=== PATIENT | female | born 1980 | race Two or more races ===

== ENCOUNTER 2018-01-20 03:36 | Inpatient (IN) | payer OTHER ==
[~2018-01-20] VITALS: Ht 165.1 cm; Wt 76.7 kg
--- NOTE | 2018-01-20 03:47 | NUR ---
PT TO ER BED 9. BIBRA FROM HOME C/O ABD PAIN X 1 WEEK. PER EMD BS CORPORATE WELLNESS COORDINATOR READ "HIGH". PT PLACED ON PCTS. VSS/RESP EVEN UNLABORED/NAD NOTED/SKIN WARM AND DRY/AFEBRILE/DENIES N-V-D/AOX4. MD AT BEDSIDE FOR EVAL.
[2018-01-20] MEDS ORDERED: INSULIN REGULAR, HUMAN 100 UNIT/ML 10 ML VIAL IV ONE (04:00)
[2018-01-20] MEDS ORDERED: KETOROLAC TROMETHAMINE INJ 30 MG/ML VIAL IV ONE (04:00)
[2018-01-20] MEDS ORDERED: IV NS 0.9% 1,000 ML BAG IV ONE (04:00)
[2018-01-20] MEDS ORDERED: INSULIN REGULAR, HUMAN 100 UNIT/ML 10 ML VIAL ONE (04:04)
[2018-01-20] MEDS ORDERED: KETOROLAC TROMETHAMINE INJ 30 MG/ML VIAL ONE (04:04)
--- NOTE | 2018-01-20 04:10 | NUR ---
RT AT BEDSIDE FOR ABG.
--- NOTE | 2018-01-20 04:12 | NUR ---
EMT AT BEDSIDE FOR EKG.
[2018-01-20 04:19] LABS: ABG BASE EXCESS -9.8 mmol/L; ABG OXYGEN SATURATION 96.3 % (92.0-98.5); ABG PCO2 33.4 mmHg (35.0-45.0); ABG PH 7.291 (7.350-7.450); ABG PO2 97.1 mmHg (75.0-100.0); AaDO2 12.6 mmHg; COHb 0.4 % (0.5-1.5); MetHb 0.3 % (0.0-1.5); O2Hb 95.6 % (94.0-97.0); SITE, ABG Right Radial; VENT MODE, BG room air
--- NOTE | 2018-01-20 04:20 | NUR ---
URINE SPECIMEN OBTAINED AND SENT TO THE LAB.
--- NOTE | 2018-01-20 04:24 | NUR ---
LAB AT BEDSIDE FOR DRAW.
[2018-01-20 04:29] LABS: APPEARANCE,URINE SL CLOUDY (CLEAR); BILIRUBIN,URINE NEGATIVE (NEGATIVE); BLOOD, URINE 2+ Ery/uL (NEGATIVE); COLOR,URINE YELLOW (YELLOW); KETONES,URINE NEGATIVE (NEGATIVE); LEUKOCYTE ESTERASE ,URINE NEGATIVE (NEGATIVE); NITRITE, URINE NEGATIVE (NEGATIVE); PROTEIN,URINE 3+ mg/dl (NEGATIVE); UGLUCOSE 3+ mg/dL (NEGATIVE); UROBILINOGEN,URINE 0.2 EU/dL (0.2)
[2018-01-20 04:36] LABS: BASOPHILS % (AUTO) 0.4 % (0.0-2.0); HEMATOCRIT 30 % (33-45); HEMOGLOBIN 10.2 g/dL (11.5-14.8); LYMPHOCYTES # (AUTO) 2.4 /CMM (0.8-4.8); LYMPHOCYTES % (AUTO) 25.4 % (20.0-44.0); MEAN CORPUSCULAR HEMOGLOBIN 30 PG (26.0-33.0); MEAN CORPUSCULAR HGB CONC 34 g/dl (31.0-36.0); MEAN CORPUSCULAR VOLUME 89 fL (82-100); MONOCYTES # (AUTO) 0.1 /CMM (0.1-1.30); MONOCYTES % (AUTO) 1.6 % (2.0-12.0); NEUTROPHILS # (AUTO) 6.8 /CMM (1.8-8.9); NEUTROPHILS % (AUTO) 71.6 % (43.0-81.0); PLATELET COUNT (AUTO) 298 /CMM (150-450); RDW COEFFICIENT OF VARIATION 13.6 (11.5-15.0); RED BLOOD CELL COUNT(AUTO) 3.43 MIL/uL (4.0-5.2); WHITE BLOOD COUNT (AUTO) 9.4 K/uL (4.3-11.0)
[2018-01-20 04:55] LABS: BACTERIA,URINE None seen /HPF (None Seen); SQUAMOUS EPITHELIAL CELL,UR Few /HPF (None Seen)
[2018-01-20 04:57] LABS: ALBUMIN 2.5 g/dL (3.4-5.0); BILIRUBIN,TOTAL 0.3 mg/dL (0.2-1.0); CALCIUM, SERUM 7.4 mg/dL (8.5-10.1); CREATININE 2.3 mg/dL (0.6-1.3); TOTAL PROTEIN, SERUM 6.9 g/dL (6.4-8.2)
[2018-01-20] MEDS ORDERED: HYDROCODONE/APAP 5/325MG 1 EACH TABLET ONE (06:04)
--- NOTE | 2018-01-20 06:10 | NUR ---
REPORT GIVEN TO MYAH FULTON FOR [facility].
--- NOTE | 2018-01-20 06:29 | NUR ---
PT TRANSPORTED VIA STRETCHER TO TELE 107 ON CAMPUS WELLNESS COORDINATOR WITH RN PER ACLS PROTOCOL. VSS.
[2018-01-20] MEDS ORDERED: HYDROCODONE/APAP 5/325MG 1 EACH TABLET PO ONE (06:30)
[2018-01-20 06:35] VITALS: BP 142/70
--- NOTE | 2018-01-20 06:45 | NUR ---
RN NOTES RECEIVED PATIENT FROM ER VIA STRETCHER ACCOMPANIED BY 1 STAFF IN STABLE CONDITION. NO RESPIRATORY DISTRESS OR SHORTNESS OF BREATH. BREATHING EVEN AND UNLABORED. COMPLAINING OF 10/10 ABDOMINAL PAIN. NORCO 5MG JUST GIVEN IN ER. ALERT AND ORIENT X 4. GERMAN SPEAKING, DOESNT UNDERSTAND CHINESE. ON ROOM AIR TOLERATING WELL. SKIN ASSESSMENT DONE, PICTURE TAKEN AND PUT IN THE CHART. VITAL SIGNS WNL. WILL ENDORSE TO AM SHIFT FOR CONTINUITY OF CARE.
--- NOTE | 2018-01-20 07:46 | NUR ---
RN NOTES RECEIVED PT A&OX4 ON ROOM AIR NO SOB OR DISTRESS. SR ON THE TELE CONSUELO HR 81. LAC 20G IV SITE INTACT. BED LOCKED AND IN LOWEST POSITION, CALL LIGHT WITHIN REACH, SIDE RAILS UPX3, WILL CONT TO CONSUELO.
[2018-01-20 08:00] VITALS: BP 127/63
[2018-01-20] MEDS ORDERED: HYDROCODONE/APAP 5/325MG 1 EACH TABLET PO PRN (08:30)
[2018-01-20] MEDS ORDERED: IV NS 0.9% 1,000 ML IV PRN (08:30)
[2018-01-20] MEDS ORDERED: Z GUARD REMEDY 2 OZ OINT TP PRN (08:30)
[2018-01-20] MEDS ORDERED: *INSULIN REGULAR(HUMULIN R)HUM 100 UNIT/ML VIAL SQ PRN (08:30)
[2018-01-20] MEDS ORDERED: MAGNESIUM HYDROXIDE 30 ML UDC PO PRN (08:30)
[2018-01-20] MEDS ORDERED: DEXTROSE 50%-WATER 50 ML DISP.SYRIN IV PRN ×2 (08:30→14:00)
[2018-01-20] MEDS ORDERED: INSU100I26 SQ (08:42)
[2018-01-20] MEDS ORDERED: GABA-532 PO (08:42)
[2018-01-20] MEDS ORDERED: ATOR40TA PO (08:42)
[2018-01-20] MEDS ORDERED: ASPI-1169 PO (08:42)
[2018-01-20] MEDS ORDERED: INSU100I14 SQ (08:42)
[2018-01-20] MEDS ORDERED: BLOO-668 IN (08:42)
[2018-01-20] MEDS ORDERED: NIFE60TA73 PO (08:42)
[2018-01-20] MEDS ORDERED: FOLI1TAB16 PO (08:42)
[2018-01-20] MEDS ORDERED: LISI40TA4 PO (08:42)
[2018-01-20] MEDS ORDERED: CARV12.52 PO (08:42)
[2018-01-20] MEDS: BLOOD SUGAR DIAGNOSTIC 1 EACH STRIP IN SCH ×4 (08:44→21:00)
[2018-01-20] MEDS: INSULIN REGULAR, HUMAN 100 UNIT/ML 3 ML VIAL SQ PRN ×3 (08:45→22:08)
[2018-01-20] MEDS: HEPARIN SODIUM, PORCINE 5000 UNITS/1 ML VIAL SQ SCH ×2 (10:17→21:16)
[2018-01-20 12:00] VITALS: BP 126/76
[2018-01-20] MEDS ORDERED: Sodium Bicarbonate 100 MEQ in IV 1/2NS 1000 ML 1,000 ML IV PRN (12:00)
[2018-01-20] MEDS ORDERED: Sodium Bicarbonate 100 MEQ in IV D5/0.45 NACL 1,000 ML IV PRN (12:00)
[2018-01-20 12:40] LABS: APPEARANCE,URINE CLEAR (CLEAR); BILIRUBIN,URINE NEGATIVE (NEGATIVE); BLOOD, URINE 1+ Ery/uL (NEGATIVE); COLOR,URINE YELLOW (YELLOW); KETONES,URINE NEGATIVE (NEGATIVE); LEUKOCYTE ESTERASE ,URINE NEGATIVE (NEGATIVE); NITRITE, URINE NEGATIVE (NEGATIVE); PROTEIN,URINE 2+ mg/dl (NEGATIVE); UGLUCOSE 3+ mg/dL (NEGATIVE); UROBILINOGEN,URINE 0.2 EU/dL (0.2)
[2018-01-20 12:46] LABS: ALBUMIN 2.3 g/dL (3.4-5.0); BILIRUBIN,TOTAL 0.2 mg/dL (0.2-1.0); CALCIUM, SERUM 7.8 mg/dL (8.5-10.1); CREATININE 1.8 mg/dL (0.6-1.3); MAGNESIUM 2.2 mg/dL (1.8-2.4); PHOSPHORUS 3.4 mg/dL (2.5-4.9); POTASSIUM 4.5 mmol/L (3.5-5.1); TOTAL PROTEIN, SERUM 6.6 g/dL (6.4-8.2)
[2018-01-20 13:18] LABS: BACTERIA,URINE Rare /HPF (None Seen); SQUAMOUS EPITHELIAL CELL,UR Few /HPF (None Seen)
[2018-01-20 13:40] LABS: EOSINOPHIL,URINE None Seen
[2018-01-20] MEDS ORDERED: INSULIN GLARGINE, 100 UNIT/ML CARTRIDGE SQ ONE (14:00)
[2018-01-20] MEDS: ASPIRIN 81 MG TAB.CHEW PO SCH (14:20)
[2018-01-20] MEDS: ATORVASTATIN 40 MG TABLET PO SCH (14:20)
[2018-01-20] MEDS: GABAPENTIN 100 MG CAPSULE PO SCH ×2 (14:21→16:04)
[2018-01-20] MEDS: LEVOFLOXACIN (500MG) 500 MG TABLET PO SCH (15:07)
[2018-01-20] MEDS: LISINOPRIL (20MG) 20 MG TABLET PO SCH (15:45)
[2018-01-20 16:00] VITALS: BP 148/81
[2018-01-20] MEDS: CARVEDILOL 12.5 MG TABLET PO SCH (16:05)
--- NOTE | 2018-01-20 18:48 | NUR ---
RN NOTES PT REMAINED IN STABLE CONDITION THROUGHOUT THE SHIFT, ALL NEEDS MET. LAST BS 111. WILL ENDORSE TO ONCOMING SHIFT.
[2018-01-20 20:00] VITALS: BP_SYST 118; BP_SYST 137; BP_DIAS 64; BP_DIAS 71
--- NOTE | 2018-01-20 20:05 | NUR ---
RN NOTES IN BED, RESTING WITH COMPLAINTS OF STOMACH PAIN. NO RESPIRATORY DISTRESS OR SHORTNESS OF BREATH. ON ROOM AIR TOLERATING WELL. ALERT AND ORIENTED. TURKMEN SPEAKING. VERBALIZES NEEDS. KEPT CLEAN AND DRY. WILL CONTINUE TO MONITOR
[2018-01-20] MEDS: TRAMADOL HCL 50 MG TABLET PO PRN (21:17)
[2018-01-20] MEDS: ZOLPIDEM TARTRATE 5 MG TABLET PO PRN (21:17)
[2018-01-20] MEDS: INSULIN GLARGINE, 100 UNIT/ML CARTRIDGE SQ SCH (22:06)
[2018-01-20] MEDS: ONDANSETRON HCL/PF 4 MG/2 ML VIAL IVP PRN (23:51)
[2018-01-21] VITALS: BP 170/87
[2018-01-21] MEDS: BLOOD SUGAR DIAGNOSTIC 1 EACH STRIP IN SCH ×6 (01:00→20:57)
[2018-01-21] MEDS: INSULIN REGULAR, HUMAN 100 UNIT/ML 3 ML VIAL SQ PRN ×5 (02:10→21:16)
[2018-01-21] MEDS: ACETAMINOPHEN 325 MG TABLET PO PRN (02:18)
[2018-01-21 04:00] VITALS: BP 172/87
[2018-01-21 06:40] LABS: BASOPHILS % (AUTO) 0.1 % (0.0-2.0); HEMATOCRIT 29 % (33-45); HEMOGLOBIN 9.5 g/dL (11.5-14.8); LYMPHOCYTES # (AUTO) 3.3 /CMM (0.8-4.8); LYMPHOCYTES % (AUTO) 40.6 % (20.0-44.0); MEAN CORPUSCULAR HEMOGLOBIN 29 PG (26.0-33.0); MEAN CORPUSCULAR HGB CONC 33 g/dl (31.0-36.0); MEAN CORPUSCULAR VOLUME 89 fL (82-100); MONOCYTES # (AUTO) 0.5 /CMM (0.1-1.30); MONOCYTES % (AUTO) 5.8 % (2.0-12.0); NEUTROPHILS # (AUTO) 4.2 /CMM (1.8-8.9); NEUTROPHILS % (AUTO) 52.5 % (43.0-81.0); PLATELET COUNT (AUTO) 267 /CMM (150-450); RDW COEFFICIENT OF VARIATION 14.4 (11.5-15.0); WHITE BLOOD COUNT (AUTO) 8.1 K/uL (4.3-11.0)
[2018-01-21 06:47] LABS: CREATININE 1.8 mg/dL (0.6-1.3); MAGNESIUM 2.2 mg/dL (1.8-2.4); PHOSPHORUS 3.7 mg/dL (2.5-4.9); POTASSIUM 5.2 mmol/L (3.5-5.1)
--- NOTE | 2018-01-21 07:15 | NUR ---
DAY LIGHT RELIEF OPERATOR INITIAL NOTES RECEIVED REPORT AND PATIENT FROM PM NURSE, PT RESTING IN BED WITH NO ACUTE DISTRESS, ALL NEEDS MET, ALL SAFETY MEASURES INIATIATED, A&O X4 [place] SPEAKING WITH A LITTLE CITIZEN OF [place], ON RA SAT ABOVE 97%, NO SOB, LEFT AC 20G IV INTACT SALINE LOCKED WITH NO INFILTRATION. WILL CONTINUE TO MONITOR.
[2018-01-21 08:00] VITALS: BP 132/72
[2018-01-21] MEDS: GABAPENTIN 100 MG CAPSULE PO SCH ×3 (08:42→17:04)
[2018-01-21] MEDS: LISINOPRIL (20MG) 20 MG TABLET PO SCH (08:42)
[2018-01-21] MEDS: ATORVASTATIN 40 MG TABLET PO SCH (08:42)
[2018-01-21] MEDS: FOLIC ACID 1 MG TABLET PO SCH (08:42)
[2018-01-21] MEDS: ASPIRIN 81 MG TAB.CHEW PO SCH (08:42)
[2018-01-21] MEDS: CARVEDILOL 12.5 MG TABLET PO SCH ×2 (08:43→17:03)
[2018-01-21] MEDS: HEPARIN SODIUM, PORCINE 5000 UNITS/1 ML VIAL SQ SCH ×2 (08:43→20:58)
[2018-01-21 12:00] VITALS: BP 149/72
[2018-01-21] MEDS: LEVOFLOXACIN (500MG) 500 MG TABLET PO SCH (14:52)
[2018-01-21] MEDS: ONDANSETRON HCL/PF 4 MG/2 ML VIAL IVP PRN (15:01)
[2018-01-21 16:00] VITALS: BP 167/79
--- NOTE | 2018-01-21 18:44 | NUR ---
RN MS ENDING NOTES PATIENT STABLE WITH NO ACUTE CHANGES NO CHANGES NOTED, ALL DUE MEDS GIVEN, ALL NEEDS MET, RT WRIST IV SITE 24 G INSERTED, PTS LAST BG 181 MG/DL BUT PATIENT DID NOT EAT ENOUGH DINNER ONLY COFFEE AND DRANK WATER, WILL NOT BE GIVING ANY INSULIN, WILL ENDORSE TO PM NURSE.
[2018-01-21 20:00] VITALS: BP 139/75
[2018-01-21] MEDS: TRAMADOL HCL 50 MG TABLET PO PRN (21:19)
[2018-01-21] MEDS: INSULIN GLARGINE, 100 UNIT/ML CARTRIDGE SQ SCH (21:21)
[2018-01-22] VITALS: BP 136/71
[2018-01-22] MEDS: BLOOD SUGAR DIAGNOSTIC 1 EACH STRIP IN SCH ×6 (00:40→20:54)
[2018-01-22] MEDS: INSULIN REGULAR, HUMAN 100 UNIT/ML 3 ML VIAL SQ PRN ×5 (00:41→21:33)
[2018-01-22 04:00] VITALS: BP_SYST 136; BP_SYST 149; BP_DIAS 71; BP_DIAS 74
[2018-01-22 06:12] LABS: BASOPHILS % (AUTO) 0.4 % (0.0-2.0); EOSINOPHILS % (AUTO) 1.3 % (0.0-6.0); HEMATOCRIT 29 % (33-45); HEMOGLOBIN 9.7 g/dL (11.5-14.8); LYMPHOCYTES % (AUTO) 38.2 % (20.0-44.0); MEAN CORPUSCULAR HEMOGLOBIN 29 PG (26.0-33.0); MEAN CORPUSCULAR HGB CONC 33 g/dl (31.0-36.0); MEAN CORPUSCULAR VOLUME 89 fL (82-100); MONOCYTES # (AUTO) 0.5 /CMM (0.1-1.30); MONOCYTES % (AUTO) 6.3 % (2.0-12.0); NEUTROPHILS # (AUTO) 4.2 /CMM (1.8-8.9); NEUTROPHILS % (AUTO) 53.8 % (43.0-81.0); PLATELET COUNT (AUTO) 273 /CMM (150-450); RDW COEFFICIENT OF VARIATION 14.1 (11.5-15.0); RED BLOOD CELL COUNT(AUTO) 3.31 MIL/uL (4.0-5.2); WHITE BLOOD COUNT (AUTO) 7.9 K/uL (4.3-11.0)
[2018-01-22 06:34] LABS: CALCIUM, SERUM 8.2 mg/dL (8.5-10.1); MAGNESIUM 2.3 mg/dL (1.8-2.4); POTASSIUM 4.8 mmol/L (3.5-5.1)
[2018-01-22 08:00] VITALS: BP 168/83
[2018-01-22] MEDS: HEPARIN SODIUM, PORCINE 5000 UNITS/1 ML VIAL SQ SCH ×2 (09:00→21:08)
[2018-01-22] MEDS: GABAPENTIN 100 MG CAPSULE PO SCH ×3 (09:36→17:59)
[2018-01-22] MEDS: CARVEDILOL 12.5 MG TABLET PO SCH ×2 (09:36→18:00)
[2018-01-22] MEDS: LISINOPRIL (20MG) 20 MG TABLET PO SCH (09:36)
[2018-01-22] MEDS: ASPIRIN 81 MG TAB.CHEW PO SCH (09:36)
[2018-01-22] MEDS: FOLIC ACID 1 MG TABLET PO SCH (09:36)
[2018-01-22] MEDS: ATORVASTATIN 40 MG TABLET PO SCH (09:36)
[2018-01-22] MEDS: ONDANSETRON HCL/PF 4 MG/2 ML VIAL IVP PRN ×2 (10:35→19:57)
[2018-01-22 12:00] VITALS: BP 168/83
--- NOTE | 2018-01-22 15:29 | NUR ---
UNEMPLOYMENT CLAIMS ADJUDICATOR NOTES SPOKE WITH DR WAGNER REGARDING CHANGING DOSAGE OF LANT[facility] 44 UNITS HS TO LOWER THE DOSE BECAUSE PATIENTS BG DROPS BUT MD STATED NO NEED FOR CHANGE OF ORDER AND WILL CONTINUE SAME DOSE.
[2018-01-22] MEDS: LEVOFLOXACIN (500MG) 500 MG TABLET PO SCH (15:55)
[2018-01-22 16:00] VITALS: BP 125/65
--- NOTE | 2018-01-22 18:37 | NUR ---
COOK CHEF ENDING NOTES PT RESTING IN BED WITH NO ACUTE CHANGES NOTED, ALL DUE MEDS AND NEEDS MET, PT VOCALIZES WOULD LIKE TO GO HOME SINCE SHE HAS THREE KIDS AT HOME AND WANTS TO GO AND TAKE CARE OF KIDS, TRESSAFRAN GIVEN TODAY SINCE PT WAS NAUSEOUS AND VOMITING, WILL CONTINUE CARE AND BG CHECKS, WILL ENDORSE TO PM NURSE.
[2018-01-22 20:00] VITALS: BP 101/68
[2018-01-22] MEDS: INSULIN GLARGINE, 100 UNIT/ML CARTRIDGE SQ SCH (21:21)
[2018-01-22] MEDS: TRAMADOL HCL 50 MG TABLET PO PRN (21:24)
[2018-01-23] VITALS (8 sets, daily range): BP systolic 96–181; BP diastolic 57–88
[2018-01-23] MEDS: BLOOD SUGAR DIAGNOSTIC 1 EACH STRIP IN SCH ×6 (00:23→21:11)
[2018-01-23] MEDS: ACETAMINOPHEN 325 MG TABLET PO PRN (00:23)
[2018-01-23] MEDS: ZOLPIDEM TARTRATE 5 MG TABLET PO PRN (00:30)
[2018-01-23] MEDS: INSULIN REGULAR, HUMAN 100 UNIT/ML 3 ML VIAL SQ PRN ×5 (00:32→21:11)
[2018-01-23] MEDS: hydrALAZINE HCL IV 20 MG VIAL IV PRN ×2 (04:11→14:51)
[2018-01-23] MEDS: TRAMADOL HCL 50 MG TABLET PO PRN (04:12)
[2018-01-23 06:50] LABS: CREATININE 1.9 mg/dL (0.6-1.3); MAGNESIUM 2.1 mg/dL (1.8-2.4); PHOSPHORUS 4.1 mg/dL (2.5-4.9); POTASSIUM 4.8 mmol/L (3.5-5.1)
[2018-01-23] MEDS: ONDANSETRON HCL/PF 4 MG/2 ML VIAL IVP PRN ×3 (07:58→20:17)
[2018-01-23] MEDS: LISINOPRIL (20MG) 20 MG TABLET PO SCH (08:00)
--- NOTE | 2018-01-23 08:00 | NUR ---
IAM/RN INITIAL NOTES,AM RECEIVED REPORT FROM NIGHT NURSE. PT ALERT, AWAKE, FOLLOWS COMMANDS. PT TAIWANESE SPEAKING. ON ROOM AIR, NO DISTRESS NOTED. ON PO DIET. PT AMBULATORY. POSSIBLE D/C TODAY. ALL NEEDS WILL BE MET, SAFETY MEASURES TAKEN, BED IN LOW POSITION, SIDE RAILS UP, CALL LIGHT WITHIN REACH. ONE EPISODE OF EMESIS NOTED, PRN ZOFRAN GIVEN, WILL REASSESS
[2018-01-23] MEDS: FOLIC ACID 1 MG TABLET PO SCH (08:01)
[2018-01-23] MEDS: ASPIRIN 81 MG TAB.CHEW PO SCH (08:01)
[2018-01-23] MEDS: GABAPENTIN 100 MG CAPSULE PO SCH ×3 (08:01→17:32)
[2018-01-23] MEDS: ATORVASTATIN 40 MG TABLET PO SCH (08:01)
[2018-01-23] MEDS: HEPARIN SODIUM, PORCINE 5000 UNITS/1 ML VIAL SQ SCH ×2 (08:01→20:17)
[2018-01-23] MEDS: CARVEDILOL 12.5 MG TABLET PO SCH ×2 (08:02→17:54)
--- NOTE | 2018-01-23 16:08 | NUR ---
ICU/RN: EMESIS X2 SINCE AM, PRN ZOFRAN GIVEN. WILL CONTINUE TO MONITOR
[2018-01-23] MEDS: INSULIN LISPRO/ASPART 100 UNIT/ML CARTRIDGE SQ SCH (17:42)
--- NOTE | 2018-01-23 18:54 | NUR ---
IAM/RN ENDING NOTES,AM REPORT WILL BE ENDORSED TO NIGHT NURSE FOR CONTINUATION OF CARE. ALL NEEDS ATTENDED TO, SAFETY MEASURES TAKEN, BED IN LOW POSITION, SIDE RAILS UP, CALL LIGHT WITHIN REACH. LINES CHANGED, PT ABLE TO REPOSITION SELF AND AMBULATE. EMESIS AND NAUSEA CEASED AT THIS TIME. WILL CONTINUE TO MONITOR.
--- NOTE | 2018-01-23 19:30 | NUR ---
VESSEL BUILDER INITIAL NOTES, RECEIVED PATIENT SLEEPING IN BED BIT EASILY AROUSABLE TO TACTILE AND VERBAL STIMULI, BREATHING EVEN AND UNLABORED, NO SOB/ACUTE DISTRESS NOTED AT THIS TIME, SATURATING WELL AT RA, ALL NEEDS MET, ALL SAFETY MEASURES INITIATED, LEFT AC 20G IV INTACT SALINE LOCKED, PATENT AND INTACT, NO S/S OF INFILTRATION OR ANY ABNORMALITY, CALL LIGHT W/I REACH, WILL CONTINUE TO MONITOR CLOSELY.
[2018-01-23] MEDS: MORPHINE SULFATE INJ 2 MG/ML DISP.SYRIN IV PRN (20:16)
[2018-01-23] MEDS ORDERED: INSULIN GLARGINE, 100 UNIT/ML CARTRIDGE SQ SCH (22:00)
[2018-01-24] VITALS: BP 126/79
[2018-01-24] MEDS: BLOOD SUGAR DIAGNOSTIC 1 EACH STRIP IN SCH ×4 (01:11→12:24)
[2018-01-24] MEDS: INSULIN REGULAR, HUMAN 100 UNIT/ML 3 ML VIAL SQ PRN ×3 (01:14→12:31)
[2018-01-24] MEDS: MORPHINE SULFATE INJ 2 MG/ML DISP.SYRIN IV PRN ×2 (02:28→08:36)
[2018-01-24] MEDS: ZOLPIDEM TARTRATE 5 MG TABLET PO PRN (02:30)
[2018-01-24 04:00] VITALS: BP 102/58
--- NOTE | 2018-01-24 05:21 | NUR ---
FISHING ACCESSORIES MAKER NOTES, NOTED PATIENT WITH BLOOD SUGAR OF 67MG/dL, 8OZ OF ORANGE JUICE PROVIDED, WILL RECHECK PROTOCOL, PATIENT ASYMPTOMATIC, A/O X4, ABLE TO VERBALIZED CONCERNS AND NEEDS, NO S/S OF ANY ABNORMALITY, NO DISTRESS NOTED, NO LETHARGIC, OR DIAPHORESIS NOTED, WILL CONTINUE TO MONITOR CLOSELY.
--- NOTE | 2018-01-24 06:10 | NUR ---
ASSISTANT PROFESSOR OF THEATER NOTES, AFTER RECHECK PATIENT'S BLOOD SUGAR, BLOOD SUGAR NOTED 129MG/dL AT THIS TIME, WILL CONTINUE TO MONITOR CLOSELY. PATIENT SLEEPING AT TIS TIME, BUT EASILY AROUSABLE TO TACTILE AN VERBAL STIMULI, IV S/L IN LEFT HAND PATENT AND INTACT, NO S/S OF INFILTRATION NOTED AT THIS TIME, CALL LIGHT W/I REACH, ALL NEEDS PROVIDED AND ANTICIPATED, WILL ENDORSE CONTINUITY OF CARE TO ONCOMING NURSE.
[2018-01-24 06:58] LABS: BASOPHILS % (AUTO) 0.2 % (0.0-2.0); HEMATOCRIT 32 % (33-45); HEMOGLOBIN 10.4 g/dL (11.5-14.8); LYMPHOCYTES % (AUTO) 39.8 % (20.0-44.0); MEAN CORPUSCULAR HEMOGLOBIN 29 PG (26.0-33.0); MEAN CORPUSCULAR HGB CONC 33 g/dl (31.0-36.0); MEAN CORPUSCULAR VOLUME 88 fL (82-100); MONOCYTES # (AUTO) 0.5 /CMM (0.1-1.30); MONOCYTES % (AUTO) 7.3 % (2.0-12.0); NEUTROPHILS # (AUTO) 3.9 /CMM (1.8-8.9); NEUTROPHILS % (AUTO) 51.7 % (43.0-81.0); PLATELET COUNT (AUTO) 277 /CMM (150-450); RDW COEFFICIENT OF VARIATION 14.2 (11.5-15.0); RED BLOOD CELL COUNT(AUTO) 3.61 MIL/uL (4.0-5.2); WHITE BLOOD COUNT (AUTO) 7.5 K/uL (4.3-11.0)
--- NOTE | 2018-01-24 07:10 | NUR ---
PSYCHOPAEDIC NURSE OPENING NOTES, RECEIVED PATIENT SLEEPING IN BED , EASILY AROUSABLE TO TACTILE AND VERBAL STIMULI, BREATHING EVEN AND UNLABORED, NO SOB/ACUTE DISTRESS NOTED AT THIS TIME.ON TELE MONITOR SR 88. ALL SAFETY MEASURES INITIATED, LEFT HAND 22 IV INTACT SALINE LOCKED, PATENT AND INTACT, NO S/S OF INFILTRATION , CALL LIGHT W/I REACH, BED IS LOCKED AND IN LOW POSITION.WILL CONTINUE TO MONITOR CLOSELY.
[2018-01-24 08:00] VITALS: BP 107/62
--- NOTE | 2018-01-24 08:20 | NUR ---
COMMERCIAL REAL ESTATE APPRAISER NOTES SEEN BY BRENDA CORDERO MADE AWARE ABOUT HER LABS,BS AND BP.HOLD LISINOPRIL PER ORDER.WILL CONTINUE TO MONITOR.
[2018-01-24] MEDS: FOLIC ACID 1 MG TABLET PO SCH (08:33)
[2018-01-24] MEDS: ASPIRIN 81 MG TAB.CHEW PO SCH (08:33)
[2018-01-24] MEDS: CARVEDILOL 12.5 MG TABLET PO SCH (08:34)
[2018-01-24] MEDS: ATORVASTATIN 40 MG TABLET PO SCH (08:34)
[2018-01-24 08:35] VITALS: BP 107/62
[2018-01-24] MEDS: LISINOPRIL (20MG) 20 MG TABLET PO SCH (08:35)
[2018-01-24] MEDS: GABAPENTIN 100 MG CAPSULE PO SCH ×2 (08:35→12:26)
[2018-01-24] MEDS: INSULIN LISPRO/ASPART 100 UNIT/ML CARTRIDGE SQ SCH (08:38)
[2018-01-24] MEDS: HEPARIN SODIUM, PORCINE 5000 UNITS/1 ML VIAL SQ SCH (08:39)
--- NOTE | 2018-01-24 09:30 | NUR ---
RN NOTES SEEN BY BRENDA CORDERO MADE AWARE THAT PATIENT HAD AN EPISODE OF LOW BLOOD SUGAR,GOT NEW ORDER FOR DISCHARGE PATIENT AND NEW INSULIN ORDER .PATIENT MADE AWARE.TOLD THAT FRIEND WILL PICK HER UP.NO NEED FOR TRANSPORTATION.
--- NOTE | 2018-01-24 10:17 | NUR ---
WOUND CARE CONSULT WOUND CARE RECEIVED CONSULT FOR POST OP INCISIONS AND BILATERAL LOWER EXTREMITY WOUNDS. WOUND CARE WILL DEFER CONSULT AND TREATMENT PLANS TO SURGICAL TEAM AT THIS TIME. PATIENT WITH PUNEET AT 22. WILL SEE PRN.
--- NOTE | 2018-01-24 13:15 | NUR ---
STUMP BLOWER NOTE PATIENT DISCHARGED TO HOME IN STABLE CONDITION.NO SOB NO DISTRESS NOTED AT THIS TIME.ALL MEDICATIONS GIVEN ORDERED.PATIENT TOLD THAT FRIEND COMING TO PICK HER UP BUT LATER SHE TOLD THAT [facility] WILL AR[employer]ANGE [facility] AND SHE WILL GO BY THE [facility]BER.SPOKE TO FRIEND.TOOK ALL BELONGS AND SIGNED THE BELONGING LIST AND DISCHARGE PAPERWORK.EXPLAINED DISCHARGE INSTRUCTIONS AND PRESCRIPTIONS WITH HELP OF SOCCER BALL ASSEMBLER WILDA KILGORE.PATIENT VERBALIZE UNDERSTANDING.PATIENT STATED THAT SHE HAS BLOOD SUGAR MONITOR AT HOME BUT STILL NEED ONE .NEW PRESCRIPTION GIVEN.LEFT VIA [facility]BER.
[2018-01-24] MEDS ORDERED: INSULIN GLARGINE, 100 UNIT/ML CARTRIDGE SQ SCH (22:00)
== END 2018-01-24 13:16 | disposition home or self-care (01) | DRG 420 ==
LOC: ER 03:37 → TELE1 06:11 → MEDSG1 01-21 14:40 → TELE1 01-21 20:50 → MEDSG1 01-24 09:58
PROVIDERS: ADMIT Nurse Practitioner Acute Care; ATTEND Nurse Practitioner Acute Care
DX: E11.10 Type 2 diabetes mellitus with ketoacidosis without coma (principal); N17.0 Acute kidney failure with tubular necrosis; I12.9 Hypertensive chronic kidney disease with stage 1 through stage 4 chronic kidney disease, or unspecified chronic kidney disease; E87.1 Hypo-osmolality and hyponatremia; D63.8 Anemia in other chronic diseases classified elsewhere; S31.104A Unspecified open wound of abdominal wall, left lower quadrant without penetration into peritoneal cavity, initial encounter; N18.9 Chronic kidney disease, unspecified; I25.10 Atherosclerotic heart disease of native coronary artery without angina pectoris; E11.22 Type 2 diabetes mellitus with diabetic chronic kidney disease; G62.9 Polyneuropathy, unspecified; K21.9 Gastro-esophageal reflux disease without esophagitis; E78.5 Hyperlipidemia, unspecified; E11.42 Type 2 diabetes mellitus with diabetic polyneuropathy; N39.0 Urinary tract infection, site not specified; Z91.19 Patient's noncompliance with other medical treatment and regimen; S71.102A Unspecified open wound, left thigh, initial encounter; S71.101A Unspecified open wound, right thigh, initial encounter; X58.XXXA Exposure to other specified factors, initial encounter; Y92.9 Unspecified place or not applicable; E83.51 Hypocalcemia; E86.1 Hypovolemia; Z83.3 Family history of diabetes mellitus; Z82.49 Family history of ischemic heart disease and other diseases of the circulatory system; I87.2 Venous insufficiency (chronic) (peripheral)
CPT/HCPCS: 36415; 36600; 71045-TC; 76770-TC; 80048-TC; 80053-TC; 80061-TC; 80076-TC; 81000-TC; 82803-TC; 82962-TC; 83735-TC; 84100-TC; 84703-TC; 85025-TC; 87081-TC; 87086-TC; A4606; J0360; J1644; J1815; J1885; J2270; J2405; J3490; J7030; Z7610